=== PATIENT | male | born 1980 | race Caucasian/White ===

== ENCOUNTER 2016-11-11 15:04 | Emergency (ER) | payer SELFPAY ==
[~2016-11-11 15:04] MED LIST: APAP/HYDROCODON1 T13 PO; BACTRIM DS1 TAB PO; COL100 PO; GLU5 PO; LAC PO; LOT1C TOP; METFORMIN HCL1000 MG PO
[2016-11-11 15:24] VITALS: BP 143/86
== END 2016-11-11 16:47 | disposition home or self-care (01) ==
LOC: ED 15:04
DX: S01.511A Laceration without foreign body of lip, initial encounter (principal); E11.9 Type 2 diabetes mellitus without complications; F99 Mental disorder, not otherwise specified; W01.0XXA Fall on same level from slipping, tripping and stumbling without subsequent striking against object, initial encounter; Y93.89 Activity, other specified; Y92.89 Other specified places as the place of occurrence of the external cause; Y99.8 Other external cause status